=== PATIENT | female | born 1950 | race Caucasian/White ===

== ENCOUNTER 2018-03-11 10:20 | Day surgery (SDC) | payer MEDICARE ==
[~2018-03-11] VITALS: Ht 152.4 cm; Wt 85.6 kg
[~2018-03-11 10:20] MED LIST: ASPI81EC PO; ERGO50000 PO; Metformin HCl500 MG PO; Mobic15 MG PO; Norco 10-325 T1 EACH PO; OMEP20ER PO; SITA25T2 PO
[2018-03-11] MEDS ORDERED: GLIP2.5ER PO (11:10)
[2018-03-11] MEDS ORDERED: ESCI10 PO (11:10)
[2018-03-11] MEDS ORDERED: TRAZ100 PO (11:10)
[2018-03-11] MEDS ORDERED: NYST100000 (11:11)
[2018-03-11] MEDS ORDERED: KRILL OIL 1,001 EAC1 PO (11:11)
== END 2018-03-11 12:08 | disposition home or self-care (01) ==
LOC: ORSCSDS 10:20
PROVIDERS: Surgery
PROC: 0DBK8ZX Excision of Ascending Colon, Via Natural or Artificial Opening Endoscopic, Diagnostic (ICD-10-PCS; principal; 2018-03-11 11:30)
DX: R19.4 Change in bowel habit (principal); D12.2 Benign neoplasm of ascending colon; E11.9 Type 2 diabetes mellitus without complications; E78.5 Hyperlipidemia, unspecified; Z98.84 Bariatric surgery status; E66.9 Obesity, unspecified; Z68.38 Body mass index [BMI] 38.0-38.9, adult; F32.9 Major depressive disorder, single episode, unspecified; E03.9 Hypothyroidism, unspecified; Z79.82 Long term (current) use of aspirin; Z79.84 Long term (current) use of oral hypoglycemic drugs; Z79.899 Other long term (current) drug therapy
CPT/HCPCS: 82947; 88305; J7120

== ENCOUNTER → 2019-02-13 | Outpatient (CLI) | payer MEDICARE ==
[~2019-02-13] MED LIST changes: +CHOL10002 PO; -ERGO50000 PO; +ESCI10 PO; +GLIP2.5ER PO; +KRILL OIL 1,001 EAC1 PO; +NYST100000; +TRAZ100 PO
[2019-02-13 09:37] LABS: Source, Urine Clean Catch
[2019-02-13 12:38] LABS: Bilirubin, Urine Neg (Neg); Blood, Urine 1+ (Neg); Glucose Qualitative, Urine 1+ (Neg); Ketones, Urine Neg (Neg); Leukocyte Esterase, Urine 3+ (Neg); Nitrite, Urine Pos (Neg); Protein, Urine Neg (Neg); Urobilinogen, Urine NORM (Normal)
[2019-02-13 12:49] LABS: Appearance, Urine Hazy (Clear); Color, Urine Yellow (P-Yellow)
[2019-02-13 12:51] LABS: Bacteria Many /hpf; White Blood Cells, Urine TNTC /hpf (0-5)
[2019-02-13 12:52] LABS: Squamous Epithelial Cells Few /hpf (Few)
== END | disposition home or self-care (01) ==
LOC: LAB 09:36 → LAB SHORT 09:36
PROVIDERS: Internal Medicine
DX: R30.0 Dysuria (principal)
CPT/HCPCS: 81001; 87077; 87086; 87186

== ENCOUNTER 2019-02-21 21:53 | Emergency (ER) | payer MEDICARE ==
[~2019-02-21] VITALS: Ht 152.4 cm; Wt 77.1 kg
[2019-02-21 22:21] LABS: BASOPHILS ABSOLUTE AUTO 0.05 K/mm3 (0.00-0.23); BASOPHILS PERCENT AUTO 1 % (0-2); EOSINOPHILS ABSOLUTE AUTO 0.28 K/mm3 (0.00-0.68); EOSINOPHILS PERCENT AUTO 3 % (0-6); Hematocrit 38.8 % (33.0-51.0); Hemoglobin 12.4 g/dL (11.5-16.0); IMMATURE GRAN ABSOLUTE AUTO 0.02 K/mm3 (0.00-0.10); IMMATURE GRAN PERCENT AUTO 0 % (0-1); LYMPHOCYTES ABSOLUTE AUTO 2.65 K/mm3 (0.84-5.20); LYMPHOCYTES PERCENT AUTO 30 % (21-46); MONOCYTES ABSOLUTE AUTO 0.43 K/mm3 (0.16-1.47); MONOCYTES PERCENT AUTO 5 % (4-13); Mean Corpuscular HGB 27.8 pg (26.0-34.0); Mean Corpuscular Volume 87 fL (80-100); Mean Platelet Volume 9.5 fL (9.1-12.4); NEUTROPHILS ABSOLUTE AUTO 5.49 K/mm3 (1.96-9.15); NEUTROPHILS PERCENT AUTO 62 % (41-73); Platelet Count 215 K/mm3 (150-400); RDW Coefficient Variation 13.5 % (11.7-14.2); Red Blood Cell Count 4.46 M/mm3 (3.80-5.20); White Blood Cell Count 8.92 K/mm3 (4.00-11.30)
[2019-02-22 00:06] LABS: Alanine Aminotransfer (ALT/SGP 33 U/L (12-78); Albumin, Blood 3.4 g/dL (3.4-5.0); Alk Phos 84 U/L (50-136); Anion Gap 7 mmol/L (6-16); Aspartate Aminotrans (AST/SGOT 14 U/L (12-37); Bilirubin, Total 0.2 mg/dL (0.1-1.0); Blood Urea Nitrogen 11 mg/dL (8-24); Bun/Creatinine Ratio 14.8 (12.0-20.0); CO2, Blood 25 mmol/L (21-32); Calcium, Blood 8.9 mg/dL (8.5-10.1); Chloride, Blood 106 mmol/L (98-108); Creatinine, Blood 0.75 mg/dL (0.40-1.00); Globulin, Blood 3.4 g/dL (2.2-4.0); Glomerular Filtration Rate >60 (60-); Glucose, Blood 209 mg/dL (70-99); Potassium, Blood 3.9 mmol/L (3.5-5.5); Sodium, Blood 138 mmol/L (136-145); Total Protein, Blood 6.8 g/dL (6.4-8.2)
== END 2019-02-22 00:56 | disposition home or self-care (01) ==
LOC: ER 21:53
PROVIDERS: Emergency Medicine
DX: S01.81XA Laceration without foreign body of other part of head, initial encounter (principal); S80.02XA Contusion of left knee, initial encounter; E11.9 Type 2 diabetes mellitus without complications; Z88.5 Allergy status to narcotic agent; Z79.84 Long term (current) use of oral hypoglycemic drugs; X58.XXXA Exposure to other specified factors, initial encounter
CPT/HCPCS: 12013; 36415; 70450; 72125; 80053; 85025; 93005; 93010; 99284-25

== ENCOUNTER → 2022-06-27 | Outpatient (CLI) | payer MEDICARE ==
[2022-06-27 08:50] LABS: Source, Urine Clean Catch
[2022-06-27 10:49] LABS: Appearance, Urine Clear (Clear); Bilirubin, Urine Neg (Neg); Blood, Urine Neg (Neg); Color, Urine Yellow (P-Yellow); Glucose Qualitative, Urine 4+ (Neg); Ketones, Urine Neg (Neg); Leukocyte Esterase, Urine Neg (Neg); Nitrite, Urine Neg (Neg); Protein, Urine Neg (Neg); Specific Gravity, Urine 1.015 (1.003-1.022); Urobilinogen, Urine NORM (Normal)
== END | disposition home or self-care (01) ==
LOC: LAB SHORT 08:49 → LAB 08:49
PROVIDERS: Internal Medicine
DX: N39.46 Mixed incontinence (principal)
CPT/HCPCS: 81003

== ENCOUNTER 2022-11-28 06:14 | Day surgery (SDC) | payer MEDICARE ==
[~2022-11-28] VITALS: Ht 152.4 cm; Wt 72.6 kg
[2022-11-28] MEDS ORDERED: NAPR220 PO (06:29)
[2022-11-28] MEDS ORDERED: FARXIGA10 MG PO (06:30)
--- NOTE | 2022-11-28 06:32 | NUR ---
11/28/22 0632 Afsaneh Baker AT 0630 PLEDGET AT 0631
[2022-11-28 08:05] VITALS: BP 147/69
== END 2022-11-28 08:16 | disposition home or self-care (01) ==
LOC: ORSCSDS 06:14
PROVIDERS: Ophthalmology
PROC: 08RJ3JZ Replacement of Right Lens with Synthetic Substitute, Percutaneous Approach (ICD-10-PCS; principal; 2022-11-28 07:30)
DX: E11.36 Type 2 diabetes mellitus with diabetic cataract (principal); H25.11 Age-related nuclear cataract, right eye; E78.00 Pure hypercholesterolemia, unspecified; Z79.84 Long term (current) use of oral hypoglycemic drugs; Z79.899 Other long term (current) drug therapy; Z79.82 Long term (current) use of aspirin
CPT/HCPCS: 82947; J2001; J2250; J7040; V2632

== ENCOUNTER → 2022-12-13 | Outpatient (CLI) | payer MEDICARE | END | disposition home or self-care (01) | LOC: LAB 08:15 | DX: N39.0 Urinary tract infection, site not specified (principal) ==

== ENCOUNTER 2023-11-11 06:36 | Observation (INO) | payer MEDICARE ==
[~2023-11-11] VITALS: Ht 152.4 cm; Wt 63.9 kg
[~2023-11-11 06:36] MED LIST changes: +FARXIGA10 MG PO; +NAPR220 PO
[2023-11-11 07:08] LABS: BASOPHILS ABSOLUTE AUTO 0.07 K/mm3 (0.00-0.23); BASOPHILS PERCENT AUTO 1 % (0-2); EOSINOPHILS ABSOLUTE AUTO 0.26 K/mm3 (0.00-0.68); EOSINOPHILS PERCENT AUTO 3 % (0-6); Hematocrit 41.9 % (33.0-51.0); Hemoglobin 13.7 g/dL (11.5-16.0); IMMATURE GRAN ABSOLUTE AUTO 0.03 K/mm3 (0.00-0.10); IMMATURE GRAN PERCENT AUTO 0 % (0-1); LYMPHOCYTES ABSOLUTE AUTO 2.84 K/mm3 (0.84-5.20); LYMPHOCYTES PERCENT AUTO 34 % (21-46); MONOCYTES ABSOLUTE AUTO 0.39 K/mm3 (0.16-1.47); MONOCYTES PERCENT AUTO 5 % (4-13); Mean Corpuscular HGB 27.1 pg (26.0-34.0); Mean Corpuscular HGB Conc 32.7 g/dL (31.5-36.5); Mean Corpuscular Volume 83 fL (80-100); Mean Platelet Volume 9.3 fL (9.1-12.4); NEUTROPHILS PERCENT AUTO 57 % (41-73); Platelet Count 269 K/mm3 (150-400); RDW Standard Deviation 42.3 fL (35.1-46.3); Red Blood Cell Count 5.05 M/mm3 (3.80-5.20); White Blood Cell Count 8.29 K/mm3 (4.00-11.30)
[2023-11-11] MEDS ORDERED: Mag Hydrox/AL Hydrox/Simeth 30 ML UDC PO ONE (07:25)
[2023-11-11] MEDS ORDERED: Lidocaine 2% Viscous Soln 15 ML UDC PO ONE (07:25)
[2023-11-11 07:29] LABS: Albumin, Blood 3.7 g/dL (3.4-5.0); Bilirubin, Total 0.5 mg/dL (0.1-1.0); Bun/Creatinine Ratio 17.4 (12.0-20.0); Calcium, Blood 9.5 mg/dL (8.5-10.1); Creatinine, Blood 0.75 mg/dL (0.40-1.00); Globulin, Blood 3.6 g/dL (2.2-4.0); Potassium, Blood 3.9 mmol/L (3.5-5.5); Total Protein, Blood 7.3 g/dL (6.4-8.2)
[2023-11-11] MEDS ORDERED: LOSA50 PO (07:45)
[2023-11-11] MEDS ORDERED: TRAZ100 PO (07:46)
[2023-11-11] MEDS ORDERED: B-12 COMPL1000 MCG/2 IM (07:47)
[2023-11-11] MEDS ORDERED: Aspirin 325 MG Tab PO ONE (07:55)
[2023-11-11] MEDS ORDERED: Nitroglycerin 0.4 MG SUBL SL ONE (08:05)
[2023-11-11] MEDS ORDERED: Ondansetron HCl 2 MG / ML 2ML Vial IV PRN (09:00)
[2023-11-11 09:17] LABS: Anti-Xa UFH, PHA Monitoring <0.10 IU/mL; International Normalized Ratio 0.95; Prothrombin Time Results 10.2 Sec (9.7-11.5)
[2023-11-11] MEDS ORDERED: Heparin Sodium,Porcine/0.5 NS 500 ML IV SCH (09:45)
[2023-11-11] MEDS ORDERED: Insulin Human Lispro 100 Units/ML 3ML Syringe SC SCH (11:30)
[2023-11-11] MEDS ORDERED: Clopidogrel Bisulfate 75 MG Tab PO ONE (11:35)
--- NOTE | 2023-11-11 11:47 | NUR ---
PT ARRIVED IN THE UNIT FROM [facility] VIA GURNEY PT ABLE TO STAND AND AMBULATE TO THE BED SBA. PT CAME HERE FOR CHEST PAIN, PT DENIES ANY CHEST PAIN SINCE ARRIVAL TO THE UNIT. PT ON HEP GTT AT 15U/KG/HR. PT ALERT AND ORIENTED X4 AT BASELINE ANSWERS QUESTIONS APPROPRIATELY. DAUGHTER AT THE BEDSIDE. DR FLORES CAME BY AND CONSENTED PT FOR ANGIO IN AM, DIET RESUMED PT NPO AT MIDNIGHT. ECHO AND 300MG LOADING PLAVIX ORDERED. VITALS HRR SR 60S, SBP 130-150'S, SATS ABOVE 95% ON RA, AFEBRILE. PT NOW RESTING IN BED CALL LIGHTS IN REACH WILL CONTINUE TO MONITOR
[2023-11-11 15:48] VITALS: BP 147/96
[2023-11-11] MEDS ORDERED: Heparin Sodium 5000 Units/ML 1ML MDV IV ONE (16:45)
--- NOTE | 2023-11-11 18:12 | NUR ---
PT SUMMARY; NO ACUTE CHANGE SINCE ARRIVAL NO RECURRENT CHEST PAIN. PLAVIX 300 MG GIVEN PT FOR ANGIO IN AM, NPO AFTER MIDNIGHT. ECHO WAS DONE AWAITING TO RESULT. PT REMAINS ON HEPARIN GTT INCREASED TO 17U/KG/HR. AMBULATING TO THE BATHROOM WITH ASSIST. TOLERATING DIET. ABLE TO MAKE NEEDS KNOWN WILL REPORT TO ONOCMING SHIFT
[2023-11-11 20:17] VITALS: BP 159/89
[2023-11-12] VITALS (11 sets, daily range): BP systolic 74–162; BP diastolic 63–95
[2023-11-12 04:59] LABS: Hematocrit 40.5 % (33.0-51.0); Hemoglobin 13.1 g/dL (11.5-16.0); Mean Corpuscular HGB Conc 32.3 g/dL (31.5-36.5); Mean Corpuscular Volume 83 fL (80-100); Mean Platelet Volume 9.5 fL (9.1-12.4); Platelet Count 258 K/mm3 (150-400); RDW Coefficient Variation 13.7 % (11.7-14.2); RDW Standard Deviation 41.6 fL (35.1-46.3); Red Blood Cell Count 4.86 M/mm3 (3.80-5.20); White Blood Cell Count 8.28 K/mm3 (4.00-11.30)
[2023-11-12 05:28] LABS: Bun/Creatinine Ratio 19.1 (12.0-20.0); Calcium, Blood 8.9 mg/dL (8.5-10.1); Creatinine, Blood 0.68 mg/dL (0.40-1.00)
--- NOTE | 2023-11-12 05:31 | NUR ---
1915 Assumed care of pt, bedside report completed. Shift plan of care reviewed with pt and all questions answered. pt with uneventful shift. Reported "chest discomfort" while lying on left side at HS. Repositioned on back which caused pain to subside. Educated pt on positioning either on right side or on back to prevent cardiac strain. Second report of chest pain at 0445 while pt was getting up and ambulating to BR. Pt encouraged to return to bed and rest which caused pain to cease. VSS throughout shift. Heparin gtt continues, dosed per pharmacy. NPO since midnight for angiogram today. Please see full assessment for additional details. No further complaints or concerns at this time, will continue to monitor.
[2023-11-12] MEDS ORDERED: Verapamil HCL 2.5 MG/ML 2ML Injection ONE (07:07)
[2023-11-12] MEDS ORDERED: NS 1,000 ML IV ONE ×2 (07:08→07:33)
[2023-11-12] MEDS ORDERED: Heparin Sodium 1000 Units/ML 10ML MDV ONE ×2 (07:08→07:33)
[2023-11-12] MEDS ORDERED: Nitroglycerin 2 MG/20 ML BTL ONE (07:08)
[2023-11-12] MEDS ORDERED: NS 250 ML IV ONE (07:08)
--- NOTE | 2023-11-12 07:24 | NUR ---
[facility] IN TO GRAB PT FOR THE ANGIO AT THIS TIME.
[2023-11-12] MEDS ORDERED: Midazolam HCl 1MG / ML 2ML Vial ONE (07:33)
[2023-11-12] MEDS ORDERED: FentaNYL Citrate 50 MCG/ML 2 ML Injection ONE (07:33)
[2023-11-12] MEDS ORDERED: Metoprolol Succinate 25 MG TABCR PO SCH (09:00)
[2023-11-12] MEDS ORDERED: Losartan Potassium 50 MG Tab PO SCH (09:00)
[2023-11-12] MEDS ORDERED: Atorvastatin 40 MG Tab PO SCH (09:00)
[2023-11-12] MEDS ORDERED: ATOR40TA PO (12:29)
[2023-11-12] MEDS ORDERED: OMEP20ER PO (12:32)
[2023-11-12] MEDS ORDERED: Carvedilol12.5 MG PO (12:32)
--- NOTE | 2023-11-12 13:05 | NUR ---
TR BAND FULLY RECOVERED. TEGADERM PLACE. DRESSING C/D/I. ARM BOARD PLACED TO REMIND THE PT TO NOT USE THAT ARM. SITE WITHOUT SWELLING, PAIN, REDNESS, HEMATOMA. OR BLEEDING.
--- NOTE | 2023-11-12 13:32 | NUR ---
D/C SUMMARY PT IS A&OX4, AND VERBALIZED EDUCATION/TEACHING ON DISCHARGE EDUCATIONS. HER VITAL SIGNS REMAINED STABLE W/ NO C/O ANGINA OR CHEST PRESSURE. THE PT REMAINED ON RA W/ SP02 >90%. BOTH IV'S WERE DISCHARGED WITHOUT ANY ISSUES. THE PT'S RADIAL SITE HAS A TEGADERM THAT REMAINS C/D/I. THE PT'S DAUGHTER CAME TO PICK HER UP. NO FURTHER NOTED FROM THIS NURSE.
[2023-11-12] MEDS ORDERED: Carvedilol 6.25 MG Tab PO SCH (17:00)
== END 2023-11-12 14:31 | disposition home or self-care (01) ==
LOC: ER 06:36 → ERHOLD 06:37 → PCU 06:37
PROVIDERS: Emergency Medicine; ADMIT Internal Medicine
DX: I21.4 Non-ST elevation (NSTEMI) myocardial infarction (principal); I51.81 Takotsubo syndrome; E11.9 Type 2 diabetes mellitus without complications; E78.5 Hyperlipidemia, unspecified; Z88.5 Allergy status to narcotic agent; Z88.8 Allergy status to other drugs, medicaments and biological substances; Z79.84 Long term (current) use of oral hypoglycemic drugs; Z79.899 Other long term (current) drug therapy
CPT/HCPCS: 36415; 71045; 76937; 80048; 80053; 82947; 83690; 84484; 85025; 85027; 85520; 85610; 85730; 93005; 93010; 93454; 96365; 96366; 99152; 99285-25; A9270; C1769; C1894; C8929; G0378; J1644; J2250; J3010; J7030; J7050; Q9957; Q9967

== ENCOUNTER → 2025-03-09 | Outpatient (CLI) | payer MEDICARE ==
[~2025-03-09] MED LIST changes: +AMOCLA875 PO; +ATOR40TA PO; +B-12 COMPL1000 MCG/2 IM; +Carvedilol12.5 MG PO; +LOSA50 PO
[2025-03-09 10:33] LABS: Source, Urine Clean Catch
[2025-03-09 14:09] LABS: Bilirubin, Urine Neg (Neg); Color, Urine Yellow (P-Yellow); Glucose Qualitative, Urine 4+ (Neg); Ketones, Urine Neg (Neg); Leukocyte Esterase, Urine Neg (Neg); Protein, Urine Neg (Neg); Specific Gravity, Urine 1.015 (1.003-1.022); Urobilinogen, Urine NORM (Normal)
[2025-03-09 14:18] LABS: Red Blood Cells, Urine 0-2 /hpf (0-2)
== END | disposition home or self-care (01) ==
LOC: LAB 10:30 → LAB SHORT 10:30
PROVIDERS: Internal Medicine
DX: R30.0 Dysuria (principal)
CPT/HCPCS: 81001; 87077; 87086; 87186